=== PATIENT | male | born 1960 | race Caucasian/White ===

== ENCOUNTER 2023-05-02 17:48 | Emergency (ER) | payer OTHER, SELFPAY ==
[2023-05-02 17:52] VITALS: BP 168/92; PULSE 100; RESP 16; TEMP 36.4; O2SAT 97
[2023-05-02] MEDS: lidocaine-epi 1% 20 mL INJ 10 ML INJECTION (19:01)
--- NOTE | 2023-05-02 19:03 | PC.NURSE ---
7 sutures to the forehead by provider. clean, dry and intact.
[2023-05-02 19:06] VITALS: BP 143/77; PULSE 96; O2SAT 95
--- NOTE | 2023-05-02 19:07 | ED_ITS ---
HPI - Wound/Laceration General: Chief Complaint: Wound/Laceration Stated Complaint: fell, lac to head Time Seen by Provider: 05/02/23 18:08 [facility] ED PFSH: Family History Mother Diabetes Stroke Social History Smoking and tobacco/nicotine status: never used tobacco/nicotine Alcohol intake: current Alcohol intake frequency: holidays/special occasions only Substance/Drug Use: never Current occupational status: employed Current occupation: [employer] Vital Signs: Vital signs: Vital Signs Temperature 97.6 F 05/02/23 17:52 Pulse Rate 96 05/02/23 19:06 Respiratory Rate 16 05/02/23 17:52 Blood Pressure 143/77 05/02/23 19:06 Pulse Oximetry 95 05/02/23 19:06 Oxygen Delivery Me thod Room Air 05/02/23 17:52 Discharge Plan Discharge Patient Disposition: Home Clinical Impression: Laceration of forehead without complication Qualifiers: Encounter type: initial encounter Qualified Code(s): S01.81XA - Laceration without foreign body of other part of head, initial encounter Condition: Stable Prescriptions: No Action lisinopril 10 mg tablet 10 mg PO DAILY Janumet 50-1,000 mg tablet 1 tab PO BID atorvastatin 80 mg tablet 80 mg PO DAILY Discharge Orders: Discharge ED (Routine); Ordered 05/02/23 Ordered By: Cristin Edwards Referrals: Shayan Gonzalez DO [Family Provider] - Discharge Diet: Usual diet Discharge Activity: Increase activity as tolerated Patient Instructions: Concussion/Head Injury - Adult, Care For Your Stitches (ED), Post Concussion Syndrome (ED) Activity Restrictions/Additional Instructions: Laceration required 7 nonabsorbable sutures for repair today. These need to be taken out by a primary care office or urgent care in approximately 5 to 7 days. Until then, wash the wound twice a day with warm water and mild soap. Be careful not to catch or snagged the suture ends on linens or clothing items. If necessary, keep covered with a bandage to keep it clean and dry during the day. It is very possible that you have a mild concussion. Concussions are diagnosed anytime someone has any kind of head injury and has 1 or all of the following: Headache, nausea, vomiting, blurry vision, difficulty concentrating, dizziness... The symptoms can last a couple of days or even a couple of weeks. We do recommend following up with the primary care doctor after 48 hours for general recheck. That way, if you are still having symptoms you can continue to be monitored until all symptoms have fully resolved. Be extremely careful while you are still symptomatic as any additional injury to your head does put you at a significantly higher risk of internal head injury. If for any reason you sustain another injury to your head during this time we do recommend you be seen and evaluated back in the emergency department. However, if during this time you experience severe dizziness without ability to stand or walk or profuse vomiting or develop the worst headache of your life we do recommend you return to the emergency department as well. Coding Level of Care Code ED [employer] for [employer]
[2023-05-02] MEDS: tetanus-dipt-pertussis 0.5 mL SDV IM (19:13)
--- NOTE | 2023-05-02 19:35 | W.ED.WOUNDLC ---
HPI - Wound/Laceration General: Chief Complaint: Wound/Laceration Stated Complaint: fell, lac to head Time Seen by Provider: 05/02/23 18:08 Source: patient Mode of arrival: ambulatory Limitations: no limitations History of Present Illness: Patient presents to the emergency department today accompanied by work colleagues for evaluation treatment of injury/laceration to his right forehead area. Patient had a mechanical fall while at work impacting his forehead on the concrete. Patient denies any loss of consciousness. He has not had vomiting or dizziness since the injury. Full range of motion to the neck. Bleeding is well-controlled. Chart review shows no chronic anticoagulation but patient is not sure when his last tetanus immunization was. Review of Systems General: Reports: 10 or more systems reviewed and unremarkable except in HPI and below PFSH ED PFSH: Family History Mother Diabetes Stroke Social History Smoking and tobacco/nicotine status: never used tobacco/nicotine Alcohol intake: current Alcohol intake frequency: holidays/special occasions only Substance/Drug Use: never Current occupational status: employed Current occupation: [employer] Physical Exam Const: COMMON NORMALS: no acute distress, patient oriented x3 and alert HENMT: COMMON NORMALS: normocephalic, hearing grossly normal bilaterally and Normal external nose present HEAD & SCALP: normocephalic NOSE: Normal external nose present Eye: COMMON NORMALS: Equal, round and reactive pupils present, EOMs intact bilaterally and conjunctivae normal CONJUNCTIVA: Yes conjunctivae normal PUPIL: Yes Equal, round and reactive pupils present Neck/C-Spine: COMMON NORMALS: full ROM and no JVD Lymph: LYMPHATIC: no lymphadenopathy noted Resp: COMMON NORMALS: normal respiratory effort, No retractions and No use of accessory muscles Cardio: COMMON NORMALS: no JVD and regular rate RATE: regular rate Back/Pelvis: COMMON NORMALS: thoraco-lumbar ROM normal Extremity: OTHER: Patient is independently ambulatory and weightbearing in the emergency department. Neuro: COMMON NORMALS: patient oriented x3 SENSORIUM/ORIENTATION: Yes alert CRANIAL NERVES: Yes CN normal except as noted SPEECH: speech normal GAIT: Yes Normal gait present Psych: COMMON NORMALS: mental status grossly normal, Normal thought process present, cooperative and normal affect THOUGHT PROCESS: Normal thought process present Skin: COMMON NORMALS: no rashes or lesions noted and turgor normal GENERAL SKIN EXAM: no rashes or lesions noted and turgor normal OTHER: Patient has a vertical laceration to his forehead approximately 4 cm in length with wound edge separation approximately 0.5 cm with bilateral eyebrow raise. Procedures Laceration Laceration 1: Site: face (Right forehead) Side (If applicable): right Size (cm): 4 Description: linear and clean Depth: simple, single layer Local Anesthetic: lidocaine 1% and with epi Amount of anesthesia used (mL): 6 Pre-repair: wound explored, irrigated extensively and deep structures intact Skin layer closed with: other (Prolene) Size (cm): 5-0 Number of sutures: 7 Technique: simple, interrupted Course Vital Signs: Vital signs: Vital Signs Temperature 97.6 F 05/02/23 17:52 Pulse Rate 96 05/02/23 19:06 Respiratory Rate 16 05/02/23 17:52 Blood Pressure 143/77 05/02/23 19:06 Pulse Oximetry 95 05/02/23 19:06 Oxygen Delivery Me thod Room Air 05/02/23 17:52 MDM - Wound/Laceration Medical Decision Making Patient shows no signs of any obvious neurological deficits today. Patient has a full-thickness laceration on the forehead which has increasing wound edge separation when he raises his eyebrows. For that reason we will suture rather than Steri-Strip and glue today. Patient received anesthesia by local injection of lidocaine with epi. Patient received 7, 5?0 nonabsorbable sutures in a simple interrupted fashion with good wound edge reapproximation. Patient had minimal bleeding and no bleeding at the time of suture completion. Patient was given wound care instructions. He is to have his sutures removed in 5 to 7 days by primary care or by urgent care. He is instructed to have a wound check if he has any concerns for infection. We went over signs and symptoms of concussion and explained how he can have symptoms for couple days or couple weeks. We discussed concerns for second impact syndrome and informational handout regarding head injuries and concussions provided to the patient for at home reference. Patient was given strict return precautions to the emergency department for neurological change or concerns for infection. Tetanus immunization updated today. Patient verbalizes understanding and agreement to treatment plan. Differential Diagnosis Likely laceration; Unlikely abscess, abrasion or avulsion of skin No radiology studies performed this visit Discharge Plan Discharge Patient Disposition: Home Clinical Impression: Laceration of forehead without complication Qualifiers: Encounter type: initial encounter Qualified Code(s): S01.81XA - Laceration without foreign body of other part of head, initial encounter Condition: Stable Prescriptions: No Action lisinopril 10 mg tablet 10 mg PO DAILY Janumet 50-1,000 mg tablet 1 tab PO BID atorvastatin 80 mg tablet 80 mg PO DAILY Discharge Orders: Discharge ED (Routine); Ordered 05/02/23 Ordered By: Cristin Edwards Referrals: Shayan Gonzalez DO [Family Provider] - Discharge Diet: Usual diet Discharge Activity: Increase activity as tolerated Patient Instructions: Concussion/Head Injury - Adult, Care For Your Stitches (ED), Post Concussion Syndrome (ED) Activity Restrictions/Additional Instructions: Laceration required 7 nonabsorbable sutures for repair today. These need to be taken out by a primary care office or urgent care in approximately 5 to 7 days. Until then, wash the wound twice a day with warm water and mild soap. Be careful not to catch or snagged the suture ends on linens or clothing items. If necessary, keep covered with a bandage to keep it clean and dry during the day. It is very possible that you have a mild concussion. Concussions are diagnosed anytime someone has any kind of head injury and has 1 or all of the following: Headache, nausea, vomiting, blurry vision, difficulty concentrating, dizziness... The symptoms can last a couple of days or even a couple of weeks. We do recommend following up with the primary care doctor after 48 hours for general recheck. That way, if you are still having symptoms you can continue to be monitored until all symptoms have fully resolved. Be extremely careful while you are still symptomatic as any additional injury to your head does put you at a significantly higher risk of internal head injury. If for any reason you sustain another injury to your head during this time we do recommend you be seen and evaluated back in the emergency department. However, if during this time you experience severe dizziness without ability to stand or walk or profuse vomiting or develop the worst headache of your life we do recommend you return to the emergency department as well. 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
== END 2023-05-02 19:24 | disposition home or self-care (01) ==
PROVIDERS: Emergency Provider Physician Assistant; Family Provider Family Medicine
DX: S01.81XA Laceration without foreign body of other part of head, initial encounter (principal); W19.XXXA Unspecified fall, initial encounter; Y99.0 Civilian activity done for income or pay; Z23 Encounter for immunization
CPT/HCPCS: 12013; 90471; 90715; 99283